=== PATIENT | male | born 1990 | race Caucasian/White ===

== ENCOUNTER 2018-09-24 15:03 | Emergency (ER) | payer OTHER ==
[2018-09-24 15:14] VITALS: O2SAT 98
[2018-09-24] MEDS ORDERED: fentaNYL CITRATE INJ 50 MCG/ML AMP IV ONE ×2 (15:15→15:59)
[2018-09-24] MEDS ORDERED: SODIUM CHLORIDE 0.9% 1000ML 1,000 ML IVS ONE (15:15)
[2018-09-24] MEDS ORDERED: TETANUS,DIPHTHERIA,PERTUSSIS 1 EA SYG IM ONE (15:59)
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
[2018-09-24] MEDS ORDERED: CHLORHEXIDINE GLUCONATE 4 % 15 ML UD TOP ONE (16:47)
[2018-09-24] MEDS ORDERED: NEOMYCIN-BACITRACIN-POLYMYXIN 0.9 GM UD TOP ONE (16:48)
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
[2018-09-24] MEDS ORDERED: AZITHROMYCIN IV 500 MG in SODIUM CHLORIDE 0.9% 250ML 250 ML IVPB ONE (17:20)
[2018-09-24] MEDS ORDERED: HYDROCOD/APAP 10/325 (ER DISP) # 3 tablets PO ONE (18:01)
[2018-09-24] MEDS ORDERED: HYDROcodone 10MG/APAP 325MG 1 EA TAB PO ONE (18:01)
[2018-09-24] MEDS ORDERED: AZITHROMYCIN IV 500 MG VIAL IVPB ONE (18:05)
[2018-09-24] MEDS ORDERED: SODIUM CHLORIDE 0.9% 250ML 0 ML ONE (18:05)
[2018-09-24] MEDS ORDERED: AZITHROMYCIN 250 MG TAB PO ONE (18:09)
[2018-09-24 18:41] VITALS: BP 139/76
[2018-09-24 18:44] VITALS: TEMP 97
== END 2018-09-24 18:29 | disposition home or self-care (01) ==
LOC: ER 15:03
DX: S82.302A Unspecified fracture of lower end of left tibia, initial encounter for closed fracture (principal); M25.512 Pain in left shoulder; S00.91XA Abrasion of unspecified part of head, initial encounter; J45.909 Unspecified asthma, uncomplicated; Z88.0 Allergy status to penicillin; V86.59XA Driver of other special all-terrain or other off-road motor vehicle injured in nontraffic accident, initial encounter; Y92.9 Unspecified place or not applicable; Z23 Encounter for immunization
CPT/HCPCS: 36415; 70450; 71260; 72125; 73551; 73590; 73610; 74177; 80053; 80320; 85025; 90471; 90715; J3010; J7030; Q0144